=== PATIENT | male | born 1995 | race Caucasian/White ===

== ENCOUNTER 2016-10-23 19:20 | Emergency (ER) | payer OTHER ==
[~2016-10-23] VITALS: Ht 162.6 cm; Wt 64.0 kg
[2016-10-23 20:17] VITALS: Ht 162.6 cm; Wt 64.0 kg
[2016-10-23] MEDS ORDERED: AZITHROMYCIN 250 MG TAB PO ONE (21:00)
[2016-10-23] MEDS ORDERED: CEFTRIAXONE 250 MG INJ IM ONE (21:00)
[2016-10-23 21:08] LABS: URINE BLOOD (Dip) POC 1+ (NEGATIVE)
[2016-10-23] MEDS ORDERED: CIPR500T4 PO (21:45)
[2016-10-23 21:53] VITALS: BP 133/74; PULSE 85; RESP 18; TEMP 96.8
--- NOTE | 2016-10-24 00:39 | ERD ---
ER Documentation Chief Complaint Date/Time DATE: 10/24/16 TIME: 00:39 Chief Complaint Dysuria HPI This is a 21-year-old male that presents to the ER with urinary frequency and dysuria. Patient had unprotected sex a week ago. Patient states he is in a monogamous relationship however he got drunk and went to a [employer] and had sexual intercourse with another woman. Patient also complains of penile discharge. He denies any testicular pain. He denies any fevers or chills. ROS 12 point review of systems was done, all negative except per HPI. Medications Home Meds Active Scripts Ciprofloxacin Hcl* (Ciprofloxacin Hcl*) 500 Mg Tablet, 500 MG PO BID for 14 Days , TAB Prov:NUSRAT FIGUEROA 10/23/16 Allergies Allergies: Coded Allergies: No Known Allergy (Unverified , 10/23/16) PMhx/Soc Medical and Surgical Hx: pt denies Medical Hx, pt denies Surgical Hx Hx Alcohol Use: Yes Hx Substance Use: No Hx Tobacco Use: Yes Smoking Status: Current every day smoker Physical Exam Vitals Vital Signs Date Time Temp Pulse Resp B/P Pulse Ox O2 Delivery O2 Flow Rate FiO2 10/23/16 21:53 96.8 85 18 133/74 100 10/23/16 20:17 96.8 75 18 126/67 95 Physical Exam GENERAL: The patient is well developed and appropriate for usual state of health , in no apparent distress. HEENT: Atraumatic. CHEST: Clear to auscultation bilaterally. There are no rales, wheezes or rhonchi. HEART: Regular rate and rhythm. No murmurs, clicks, rubs or gallops. ABDOMEN: Soft, nontender and nondistended. Good bowel sounds. No rebound or guarding. No gross peritonitis. No gross organomegaly or masses. No Cuellar sign or McBurney point tenderness. : patient has pollock discharge from the penis. no testicular pain or swelling. NEURO: Alert and oriented. SKIN: The skin is warm and dry. Results 24 hrs Laboratory Tests Test 10/23/16 21:07 Bedside Urine pH (LAB) 5.5 Bedside Urine Protein (LAB) Trace Bedside Urine Glucose (UA) Negative Bedside Urine Ketones (LAB) Negative Bedside Urine Blood 1+ Bedside Urine Nitrite (LAB) Negative Bedside Urine Leukocyte Esterase (L 2+ Current Medications Medications (Trade) Dose Ordered Sig/Mildred Route PRN Reason Start Time Stop Time Status Last Admin Dose Admin Ceftriaxone Sodium (Rocephin) 250 mg ONCE ONCE IM 10/23/16 21:00 10/23/16 21:01 DC 10/23/16 21:02 Azithromycin (Zithromax) 1,000 mg ONCE ONCE PO 10/23/16 21:00 10/23/16 21:01 DC 10/23/16 21:02 Procedures/MDM This is a 21-year-old male that presents to the ER with urinary frequency and dysuria. Patient also has penile discharge. Patient likely has a sexually transmitted infection. He was treated here in the ER with Rocephin and azithromycin no complications. Patient is to follow-up with his primary care doctor within 1-2 days return to ER sooner if symptoms worsen. My medical decision-making should with the patient he understands and agrees with plan. Departure Diagnosis: Primary Impression: Exposure to STD Condition: Stable Patient Instructions: If You Think You Have an STD Additional Instructions: Call your primary care doctor TOMORROW for an appointment during the next 1-2 days.See the doctor sooner or return here if your condition worsens before your appointment time. NUSRAT FIGUEROA Oct 24, 2016 00:39
== END 2016-10-23 21:53 | disposition home or self-care (01) ==
LOC: FTE 19:20
DX: Z20.2 Contact with and (suspected) exposure to infections with a predominantly sexual mode of transmission (principal); F17.210 Nicotine dependence, cigarettes, uncomplicated
CPT/HCPCS: 81003; 87591; J0696; Z7610; 96372

== ENCOUNTER 2016-12-09 14:15 | Emergency (ER) | payer OTHER ==
[~2016-12-09] VITALS: Wt 71.0 kg
[~2016-12-09 14:15] MED LIST: CIPR500T4 PO
[2016-12-09 15:45] LABS: URINE BLOOD (Dip) POC 1+ (NEGATIVE)
[2016-12-09] MEDS ORDERED: CEFTRIAXONE 250 MG INJ IM ONE (16:00)
[2016-12-09] MEDS ORDERED: AZITHROMYCIN 250 MG TAB PO ONE (16:00)
[2016-12-09] MEDS ORDERED: DOXY100T20 PO (16:23)
--- NOTE | 2016-12-09 16:31 | ERD ---
ER Documentation Chief Complaint Date/Time DATE: 12/09/16 TIME: 16:25 Chief Complaint PENIS D/C REQUSTING STD HPI Is a 21-year-old male who presents the emergency department today complaining of penile discharge for the past week. Patient states he was seen here in October for similar symptoms and was treated for sexually transmitted infection. Patient states his symptoms resolved. States that his girlfriend was not treated. Denies any dysuria or testicular pain. Denies any fevers or chills. ROS All systems reviewed and are negative except as per history of present illness. Medications Home Meds Active Scripts Doxycycline Hyclate* (Doxycycline Hyclate*) 100 Mg Tablet.dr, 100 MG PO BID for 10 Days, TAB Prov:JANE MORRISON PA-C 12/09/16 Ciprofloxacin Hcl* (Ciprofloxacin Hcl*) 500 Mg Tablet, 500 MG PO BID for 14 Days , TAB Prov:NUSRAT FIGUEROA 10/23/16 Allergies Allergies: Coded Allergies: No Known Allergy (Unverified , 10/23/16) PMhx/Soc Medical and Surgical Hx: pt denies Medical Hx, pt denies Surgical Hx Hx Alcohol Use: Yes Hx Substance Use: No Hx Tobacco Use: Yes Smoking Status: Current every day smoker Physical Exam Vitals Vital Signs Date Time Temp Pulse Resp B/P Pulse Ox O2 Delivery O2 Flow Rate FiO2 12/09/16 16:38 89 16 100 Room Air 12/09/16 14:25 9.0 85 18 126/71 99 Physical Exam Const: No acute distress Head: Atraumatic Eyes: Normal Conjunctiva ENT: Normal External Ears, Nose and Mouth. Neck: Full range of motion..~ No meningismus. Resp: Clear to auscultation bilaterally Cardio: Regular rate and rhythm, no murmurs Abd: Soft, non tender, non distended. Normal bowel sounds : Testicular exam with testicles descended bilaterally. No erythema or warmth. Nontender to palpation. Uncircumcised penis. purulent yellow discharge from penis. Evidence of penile papules around glans penis. Ext: No cyanosis, or edema Neur: Awake and alert Psych: Normal Mood and Affect Results 24 hrs Laboratory Tests Test 12/09/16 15:47 Bedside Urine pH (LAB) 6.0 Bedside Urine Protein (LAB) Trace Bedside Urine Glucose (UA) Negative Bedside Urine Ketones (LAB) Negative Bedside Urine Blood 1+ Bedside Urine Nitrite (LAB) Negative Bedside Urine Leukocyte Esterase (L 2+ Current Medications Medications (Trade) Dose Ordered Sig/Mildred Route PRN Reason Start Time Stop Time Status Last Admin Dose Admin Ceftriaxone Sodium (Rocephin) 250 mg ONCE ONCE IM 12/09/16 16:00 12/09/16 16:01 DC 12/09/16 15:51 Azithromycin (Zithromax) 1,000 mg ONCE ONCE PO 12/09/16 16:00 12/09/16 16:01 DC 12/09/16 15:50 Procedures/MDM This a 21-year-old male who presents to the emergency department today for penile discharge for the past week. Patient has been treated in October 24, 2016 for sexually transmitted infections. At that time patient stated symptoms have resolved but returned approximately 1 week ago as his girlfriend was never treated. Given patient's symptoms I did obtain a UA as well as send the urine for gonorrhea and chlamydia. Patient was given azithromycin and ceftriaxone here in the emergency department. UA shows 2+ leukoesterase and 1+ hematuria Patient symptoms at this time most consistent with urinary tract infection likely secondary to gonorrhea and Chlamydia infection. Patient is afebrile and otherwise well-appearing. Low suspicion for pyelonephritis or nephrolithiasis. Patient has no testicular pain on physical exam. There is no erythema or warmth. Low suspicion for orchitis, epidermidis, testicular torsion. Patient was given a prescription for doxycycline. Patient was instructed to have all of his sexual partners tested and treated prior to intercourse. Patient was instructed to make sure symptoms resolved entirely. Patient also had evidence of umbilicated papules around the glans penis. They do not appear to be molluscum, genital warts or HSV however this certainly should be considered. I have explained this to the patient. Patient was given information for dermatology referral. At this time the patient is stable for discharge and outpatient management. Patient should follow up with their PCP in the next 1-2 days. They may return to the emergency department sooner for any persistent or worsening of symptoms. Patient understood and agreed with the plan. Discussed the patient with Dr. Aldridge and he is in agreement with the plan. Departure Diagnosis: Primary Impression: Encounter for laboratory test Additional Impression: UTI (urinary tract infection) Urinary tract infection type: site unspecified Hematuria presence: with hematuria Qualified Code: N39.0 - Urinary tract infection with hematuria, site unspecified Condition: Fair Patient Instructions: Understanding Urinary Tract Infections (UTIs), Understanding STDs Referrals: NOAV CORTES MD,LARISSA MEJIA,ZANA ROBIN,MORRO CERNA,PHAM MACEDO,SRIDHAR FRANCOIS,SRIDHAR Theodore [facility] YOU HAVE RECEIVED A MEDICAL SCREENING EXAM AND THE RESULTS INDICATE THAT YOU DO NOT HAVE A CONDITION THAT REQUIRES URGENT TREATMENT IN THE EMERGENCY DEPARTMENT. FURTHER EVALUATION AND TREATMENT OF YOUR CONDITION CAN WAIT UNTIL YOU ARE SEEN IN YOUR DOCTORS OFFICE WITHIN THE NEXT 1-2 DAYS. IT IS YOUR RESPONSIBILITY TO MAKE AN APPOINTMENT FOR FOLOW-UP CARE. IF YOU HAVE A PRIMARY DOCTOR --you should call your primary doctor and schedule an appointment IF YOU DO NOT HAVE A PRIMARY DOCTOR YOU CAN CALL OUR PHYSICIAN REFERRAL HOTLINE AT IF YOU CAN NOT AFFORD TO SEE A PHYSICIAN YOU CAN CHOSE FROM THE FOLLOWING [facility] CLINICS [facility] [address] [employer] [address] [facility] [address] [employer] [facility] [address] [facility] [address] [facility] [address] [facility]. [facility]. [address] Additional Instructions: Call your primary care doctor TOMORROW for an appointment during the next 1-2 days.See the doctor sooner or return here if your condition worsens before your appointment time. Take antibiotics as prescribed Do not have sexual intercourse until all symptoms have resolved and all partners have been tested and treated Make an appointment with clinical education specialist for bumps on penis JANE MORRISON PA-C December 09, 2016 16:30
[2016-12-09 16:38] VITALS: PULSE 89; RESP 16
== END 2016-12-09 16:39 | disposition home or self-care (01) ==
LOC: FTE 14:15
DX: Z00.01 Encounter for general adult medical examination with abnormal findings (principal); N39.0 Urinary tract infection, site not specified; F17.210 Nicotine dependence, cigarettes, uncomplicated
CPT/HCPCS: 81003; 87591; 96372; J0696; Z7502; Z7610

== ENCOUNTER 2017-05-28 15:31 | Emergency (ER) | payer OTHER ==
[~2017-05-28] VITALS: Ht 160 cm; Wt 60.0 kg
[~2017-05-28 15:31] MED LIST changes: +DOXY100T20 PO
[2017-05-28 15:37] VITALS: Ht 160 cm; Wt 60.0 kg
[2017-05-28] MEDS ORDERED: LORAZEPAM 2 MG INJ IM ONE (16:30)
--- NOTE | 2017-05-28 19:05 | ERD ---
ER Documentation Chief Complaint Chief Complaint BIB RA FOR EVAL OF ACCIDENTAL DRUG OD ON METH HPI This 21-year-old male presents for palpitations after smoking too much meth. He means you so much of the drug. He has been hyperventilating and feeling heart palpitations without actual pain. Also feels very jittery and nervous. Is feeling well before he uses the methamphetamines. ROS All systems reviewed and are negative except as per history of present illness. Medications Home Meds Discontinued Scripts Doxycycline Hyclate* (Doxycycline Hyclate*) 100 Mg Tablet.dr, 100 MG PO BID for 10 Days, TAB Prov:JANE MORRISON PA-C 12/09/16 Ciprofloxacin Hcl* (Ciprofloxacin Hcl*) 500 Mg Tablet, 500 MG PO BID for 14 Days , TAB Prov:NUSRAT FIGUEROA 10/23/16 Allergies Allergies: Coded Allergies: No Known Allergy (Unverified , 05/28/17) PMhx/Soc Medical and Surgical Hx: pt denies Medical Hx, pt denies Surgical Hx Hx Alcohol Use: Yes Hx Substance Use: Yes (meth marijuana ) Hx Tobacco Use: Yes Smoking Status: Current every day smoker Physical Exam Vitals Vital Signs Date Time Temp Pulse Resp B/P Pulse Ox O2 Delivery O2 Flow Rate FiO2 05/28/17 17:02 84 18 134/80 100 Room Air 05/28/17 15:52 114 28 170/57 100 Room Air 05/28/17 15:37 97.1 125 34 159/110 99 Physical Exam Const: [] Mild distress, appears in comfort Head: Atraumatic Eyes: Normal Conjunctiva, EOMI, PERRLA ENT: Normal External Ears, Nose and Mouth. Neck: Full range of motion..~ No meningismus. Resp: Clear to auscultation bilaterally, mild hyperventilation Cardio: Regular tachycardia, no murmurs Abd: Soft, non tender, non distended. Normal bowel sounds Skin: No petechiae or rashes Back: No midline or flank tenderness Ext: No cyanosis, or edema Neur: Awake and alert and oriented 3, no focal deficits Psych: Anxious Results 24 hrs Current Medications Medications (Trade) Dose Ordered Sig/Mildred Route PRN Reason Start Time Stop Time Status Last Admin Dose Admin Lorazepam (Ativan) 1 mg ONCE ONCE IM 05/28/17 16:30 05/28/17 16:31 DC 05/28/17 17:00 Procedures/MDM Amphetamine abuse with normal symptoms of that drug including palpitations and anxiety. Patient was given a milligram of Ativan. After this he felt much better and his vital signs stabilized. No signs of ischemia on his EKG. Feeling much better and is being discharged in stable condition. Was counseled at the bedside for greater than 3 minutes about the dangers of methamphetamine use. EKG interpretation: Normal sinus rhythm rate of 97, single PVC, normal axis, no ST or T-wave changes concerning for acute ischemia. shanker out interpretation: Sinus tachycardia followed by normal sinus rhythm without arrhythmias. Departure Diagnosis: Primary Impression: Palpitations Additional Impression: Methamphetamine use Condition: Stable Patient Instructions: Understanding Methamphetamine Abuse and Addiction Referrals: [facility] YOU HAVE RECEIVED A MEDICAL SCREENING EXAM AND THE RESULTS INDICATE THAT YOU DO NOT HAVE A CONDITION THAT REQUIRES URGENT TREATMENT IN THE EMERGENCY DEPARTMENT. FURTHER EVALUATION AND TREATMENT OF YOUR CONDITION CAN WAIT UNTIL YOU ARE SEEN IN YOUR DOCTORS OFFICE WITHIN THE NEXT 1-2 DAYS. IT IS YOUR RESPONSIBILITY TO MAKE AN APPOINTMENT FOR FOLOW-UP CARE. IF YOU HAVE A PRIMARY DOCTOR --you should call your primary doctor and schedule an appointment IF YOU DO NOT HAVE A PRIMARY DOCTOR YOU CAN CALL OUR PHYSICIAN REFERRAL HOTLINE AT IF YOU CAN NOT AFFORD TO SEE A PHYSICIAN YOU CAN CHOSE FROM THE FOLLOWING [facility] [address] [facility]. [facility] [address] [facility] [facility] [address] [facility] [address] [facility]. [facility] [address] [facility]. [facility]. [address] Additional Instructions: Call your primary care doctor TOMORROW for an appointment during the next 1-2 days.See the doctor sooner or return here if your condition worsens before your appointment time. PRAKASH VILLANUEVA DO May 28, 2017 19:05
[2017-05-28 19:20] VITALS: BP 128/78; PULSE 80; RESP 17
== END 2017-05-28 19:21 | disposition home or self-care (01) ==
LOC: E/R 15:31
DX: R00.2 Palpitations (principal); F15.20 Other stimulant dependence, uncomplicated; F17.210 Nicotine dependence, cigarettes, uncomplicated
CPT/HCPCS: 93005; 96372; J2060; Z7502

== ENCOUNTER 2017-05-30 00:33 | Emergency (ER) | payer OTHER ==
[~2017-05-30] VITALS: Ht 177.8 cm; Wt 80.0 kg
[2017-05-30 00:36] VITALS: Ht 177.8 cm; Wt 80.0 kg
--- NOTE | 2017-05-30 01:37 | ERD ---
ER Documentation Chief Complaint Chief Complaint RUQ abd pain 2 days ago, sp drug use - meth 2 days ago, panic attack HPI The patient is a 21-year-old male, presenting to the ER because of right upper quadrant abdominal pain for 2 days, associated with vomiting today. He was seen in the ER 2 days ago for acute amphetamine abuse treated with Ativan then released. He is stated that the last time he did amphetamine was 2 days ago, denies fever, chills, neck pain, chest pain, dysuria, diarrhea, constipation. He smokes, denies drinking X Past medical history: Panic disorder, Past surgical history: None ROS All systems reviewed and are negative except as per history of present illness. Medications Home Meds Discontinued Scripts Doxycycline Hyclate* (Doxycycline Hyclate*) 100 Mg Tablet.dr, 100 MG PO BID for 10 Days, TAB Prov:JANE MORRISON PA-C 12/09/16 Ciprofloxacin Hcl* (Ciprofloxacin Hcl*) 500 Mg Tablet, 500 MG PO BID for 14 Days , TAB Prov:NUSRAT FIGUEROA 10/23/16 Allergies Allergies: Coded Allergies: No Known Allergy (Unverified , 05/28/17) PMhx/Soc Hx Alcohol Use: Yes Hx Substance Use: Yes (meth marijuana ) Hx Tobacco Use: Yes Physical Exam Vitals Vital Signs Date Time Temp Pulse Resp B/P Pulse Ox O2 Delivery O2 Flow Rate FiO2 05/30/17 02:38 60 19 122/66 100 Room Air 05/30/17 01:54 66 24 139/109 100 Room Air 05/30/17 00:36 97.8 105 20 154/80 96 Physical Exam Const: Very anxious, and in no distress Head: Atraumatic. Eyes: Normal Conjunctiva. ENT: Normal External Ears, Nose and Mouth. Neck: Full range of motion. No meningismus. Resp: Clear to auscultation bilaterally. Cardio: Regular rate and rhythm. Abd: Soft, non distended, normal bowel sounds, Vague right upper quadrant tenderness, no rigidity, rebound, CVA tenderness Skin: No petechiae or rashes. Back: No midline or flank tenderness. Ext: No cyanosis, or edema. Neur: Awake and alert. No focal deficit Psych: Normal Mood and Affect. Result Diagram: 05/30/1720405/30/17204 Results 24 hrs Laboratory Tests Test 05/30/17 02:05 05/30/17 02:11 White Blood Count 13.510^3/ul Red Blood Count 5.2710^6/ul Hemoglobin 15.5g/dl Hematocrit 44.5% Mean Corpuscular Volume 84.4fl Mean Corpuscular Hemoglobin 29.4pg Mean Corpuscular Hemoglobin Concent 34.8g/dl Red Cell Distribution Width 13.1% Platelet Count 83830^3/UL Mean Platelet Volume 10.1fl Neutrophils % 63.7% Lymphocytes % 24.3% Monocytes % 7.8% Eosinophils % 3.5% Basophils % 0.4% Nucleated Red Blood Cells % 0.0/100WBC Neutrophils # 8.610^3/ul Lymphocytes # 3.310^3/ul Monocytes # 1.110^3/ul Eosinophils # 0.510^3/ul Basophils # 0.110^3/ul Nucleated Red Blood Cells # 0.010^3/ul Sodium Level 143mmol/L Potassium Level 3.4mmol/L Chloride Level 111mmol/L Carbon Dioxide Level 14mmol/L Anion Gap 21 Blood Urea Nitrogen 21mg/dl Creatinine 0.94mg/dl Glucose Level 120mg/dl Calcium Level 9.7mg/dl Total Bilirubin 0.6mg/dl Direct Bilirubin 0.00mg/dl Indirect Bilirubin 0.6mg/dl Aspartate Amino Transf (AST/SGOT) 37IU/L Alanine Aminotransferase (ALT/SGPT) 38IU/L Alkaline Phosphatase 163IU/L Total Protein 8.5g/dl Albumin 5.1g/dl Globulin 3.40g/dl Albumin/Globulin Ratio 1.50 Lipase 57U/L Urine Opiates Screen Negative Urine Barbiturates Negative Urine Amphetamines Screen Positive Urine Benzodiazepines Screen Negative Urine Cocaine Screen Negative Urine Cannabinoids Positive Ethyl Alcohol Level < 10.0mg/dl Bedside Urine pH (LAB) 6.5 Bedside Urine Protein (LAB) 1+ Bedside Urine Glucose (UA) Negative Bedside Urine Ketones (LAB) 3+ Bedside Urine Blood Negative Bedside Urine Nitrite (LAB) Negative Bedside Urine Leukocyte Esterase (L Negative Current Medications Medications (Trade) Dose Ordered Sig/Mildred Route PRN Reason Start Time Stop Time Status Last Admin Dose Admin Lorazepam 1 mg 1 mg ONCE ONCE IV 05/30/17 02:00 05/30/17 02:01 DC 05/30/17 02:21 Sodium Chloride (NS) 1,000 ml @ 1,000 mls/hr Q1H ONCE IV 05/30/17 02:00 05/30/17 02:59 DC 05/30/17 02:21 Potassium Chloride (Klor-Con 20) 20 meq ONCE STAT PO 05/30/17 03:32 05/30/17 03:33 DC Procedures/MDM [place] [id number] Radiology Main Line: [phone] DIAGNOSTIC IMAGING REPORT Patient: EDNA PITTMAN : 1995 Age: 21 Sex: M MR #: [id number] DOS: 05/30/17 0153 Ordering MD: MORRO NESS MD Location: E/R Room/Bed: PROCEDURE: ULTRASOUND LIMITED ABDOMEN CLINICAL INDICATION: 21-year-old male with abdominal pain. TECHNIQUE: Multiple sonographic of the right upper quadrant of the abdomen were obtained. The images were reviewed on a PACS workstation. COMPARISON: None. FINDINGS: The pancreas is partially visualized and is otherwise without abnormal echogenicity. The liver displays normal echogenicity. The liver measures 13.9 cm in length. No evidence of intrahepatic biliary ductal dilatation is seen. The portal and hepatic veins are unremarkable. The gallbladder demonstrates no wall thickening, sludge, nor stones. No pericholecystic fluid is seen. The common bile duct measures 3.2 mm and is not dilated. The right kidney displays normal echogenicity. The right kidney measures 9.9 cm in maximal length. No caliectasis or hydronephrosis is seen. No free fluid is seen. IMPRESSION: Unremarkable right upper quadrant abdominal ultrasound. .Fam Bradshaw MD, Date Time Electronically viewed and signed by .Fam Bradshaw MD, on 05/30/2017 02:35 .M/ CC: MORRO NESS MD [place] [id number] Radiology Main Line: [phone] DIAGNOSTIC IMAGING REPORT Patient: EDNA PITTMAN : 1995 Age: 21 Sex: M MR #: [id number] DOS: 05/30/17 0153 Ordering MD: MORRO NESS MD Location: E/R Room/Bed: PROCEDURE: XR Chest. CLINICAL INDICATION: Abdominal pain. TECHNIQUE: Single frontal view of the chest. COMPARISON: None. FINDINGS: Heart size is likely upper limits of normal. The lungs are clear. No signs of pleural fluid or pneumothorax are seen. The osseous structures and soft tissues are unremarkable. IMPRESSION: No evidence for active cardiopulmonary disease. RPTAT: UU Physician Aubree Date Time Electronically viewed and signed by Physician Aubree on 05/30/2017 02:16 RS/ CC: MORRO NESS MD MEDICAL MAKING DECISION: The patient is a 31-year-old male, presenting to the ER because of acute anxiety attack, acute amphetamine abuse, acute hypokalemia, acute abdominal pain of unclear etiology, most likely due to hyperventilation and drug abuse. He was treated with Ativan 1 mg IV for acute anxiety, 1 L normal saline for acute dehydration and potassium chloride 20 mEq p.o. for acute hypokalemia with good response The differential diagnoses considered include but are not limited to cholelithiasis, cholecystitis, cystitis, pancreatitis, hepatitis, gastritis, peptic ulcer disease, gastric ulcer, appendicitis, diverticulitis, cholangitis, choledocholithiasis, partial small bowel obstruction. Departure Diagnosis: Primary Impression: Abdominal pain Additional Impressions: Amphetamine abuse Hypokalemia Condition: Good Comments The patient's blood pressure was elevated (>120/80) but appears stable without evidence of hypertension emergency or urgency. The patient was counseled about the risks of hypertension and urged to pursue outpatient monitoring and therapy within a week with their primary care physician. I discussed the findings with the patient. I advised the patient to follow-up with the primary physician in about 1-2 days, sooner if needed and return if any concern. Disclaimer: Inadvertent spelling and grammatical errors are likely due to EHR/ dictation software use and do not reflect on the overall quality of patient care. Also, please note that the electronic time recorded on this note does not necessarily reflect the actual time of the patient encounter. MORRO NESS MD May 30, 2017 01:37
[2017-05-30] MEDS ORDERED: LORAZEPAM 2 MG INJ IV ONE (02:00)
[2017-05-30] MEDS ORDERED: SOD CHLORIDE 0.9% 1,000 ML IV ONE (02:00)
[2017-05-30 02:14] LABS: URINE BLOOD (Dip) POC Negative (NEGATIVE)
--- NOTE | 2017-05-30 02:16 | RADRPT ---
PROCEDURE: XR Chest. CLINICAL INDICATION: Abdominal pain. TECHNIQUE: Single frontal view of the chest. COMPARISON: None. FINDINGS: Heart size is likely upper limits of normal. The lungs are clear. No signs of pleural fluid or pneum othorax are seen. The osseous structures and soft tissues are unremarkable. IMPRESSION: No evidence for active cardiopulmonary disease. RPTAT: UU Physician Aubree Date Time Electronically viewed and signed by Physician Aubree on 05/30/2017 02:16 RS/
--- NOTE | 2017-05-30 02:35 | RADRPT ---
PROCEDURE: ULTRASOUND LIMITED ABDOMEN CLINICAL INDICATION: 21-year-old male with abdominal pain. TECHNIQUE: Multiple sonographic of the right upper quadrant of the abdomen were obtained. The imag es were reviewed on a PACS workstation. COMPARISON: None. FINDINGS: The pancreas is partially visualized and is otherwise without abnormal echogenicity. The liver displays normal echogenicity. The liver measures 13.9 cm in length. No evidence of intrah epatic biliary ductal dilatation is seen. The portal and hepatic veins are unremarkable. The gallbladder demonstrates no wall thickening, sludge, nor stones. No pericholecystic fluid is see n. The common bile duct measures 3.2 mm and is not dilated. The right kidney displays normal echogenicity. The right kidney measures 9.9 cm in maximal length. N o caliectasis or hydronephrosis is seen. No free fluid is seen. IMPRESSION: Unremarkable right upper quadrant abdominal ultrasound. .Fam Bradshaw MD, MD Date Time Electronically viewed and signed by .Fam Bradshaw MD, on 05/30/2017 02:35 .M/
[2017-05-30 02:36] LABS: BASOPHIL # 0.1 10^3/ul (0.0-0.1); BASOPHILS % 0.4 % (0.0-2.0); EOSINOPHILS # 0.5 10^3/ul (0.0-0.5); EOSINOPHILS % 3.5 % (0.0-7.0); HEMATOCRIT 44.5 % (42.0-52.0); HEMOGLOBIN 15.5 g/dl (14.0-18.0); LYMPHOCYTES # 3.3 10^3/ul (0.8-2.9); LYMPHOCYTES % 24.3 % (15.0-51.0); MEAN CORPUSCULAR HEMOGLOBIN 29.4 pg (29.0-33.0); MEAN CORPUSCULAR HGB CONC 34.8 g/dl (32.0-37.0); MEAN CORPUSCULAR VOLUME 84.4 fl (82.0-101.0); MEAN PLATELET VOLUME 10.1 fl (7.4-10.4); MONOCYTE # 1.1 10^3/ul (0.3-0.9); MONOCYTES % 7.8 % (0.0-11.0); NEUTROPHIL # 8.6 10^3/ul (1.6-7.5); NEUTROPHILS % 63.7 % (39.0-77.0); PLATELET COUNT 272 10^3/UL (140-415); RED BLOOD COUNT 5.27 10^6/ul (4.70-6.10); RED CELL DISTRIBUTION WIDTH 13.1 % (11.5-14.5); WHITE BLOOD COUNT 13.5 10^3/ul (4.8-10.8)
[2017-05-30 03:04] LABS: ALANINE AMINOTRANSFERASE 38 IU/L (13-69); ALBUMIN 5.1 g/dl (3.3-4.9); ALKALINE PHOSPHATASE 163 IU/L (42-121); ANION GAP 21 (8-16); ASPARTATE AMINO TRANSFERASE 37 IU/L (15-46); BILIRUBIN,INDIRECT 0.6 mg/dl (0-1.1); BILIRUBIN,TOTAL 0.6 mg/dl (0.2-1.3); BLOOD UREA NITROGEN 21 mg/dl (7-20); CALCIUM 9.7 mg/dl (8.4-10.2); CARBON DIOXIDE 14 mmol/L (21-31); CHLORIDE 111 mmol/L (97-110); CREATININE 0.94 mg/dl (0.61-1.24); GLUCOSE 120 mg/dl (70-220); POTASSIUM 3.4 mmol/L (3.5-5.1); SODIUM 143 mmol/L (135-144); TOTAL PROTEIN 8.5 g/dl (6.1-8.1)
[2017-05-30 03:05] LABS: ETHANOL < 10.0 mg/dl
[2017-05-30 03:16] LABS: BARBITURATES Negative (NEGATIVE); BENZODIAZEPINES Negative (NEGATIVE); CANNABINOIDS Positive (NEGATIVE); COCAINE Negative (NEGATIVE); OPIATES Negative (NEGATIVE)
[2017-05-30] MEDS ORDERED: POTASSIUM CHLORIDE (SR) 20 MEQ TAB PO STA (03:32)
[2017-05-30 03:49] VITALS: BP 111/51; PULSE 82; RESP 15
== END 2017-05-30 03:54 | disposition home or self-care (01) ==
LOC: E/R 00:33
DX: R10.11 Right upper quadrant pain (principal); F15.10 Other stimulant abuse, uncomplicated; E87.6 Hypokalemia; Z87.891 Personal history of nicotine dependence
CPT/HCPCS: 36415; 71010; 76705; 80053; 80306; 80307; 81003; 83690; 85025; 96374; J2060; J7030; Z7502; Z7610

== ENCOUNTER 2018-01-15 06:55 | Emergency (ER) | END 2018-01-15 09:40 | disposition home or self-care (01) ==

== ENCOUNTER 2018-05-03 03:13 | Emergency (ER) | END 2018-05-03 05:05 | disposition home or self-care (01) ==

== ENCOUNTER 2018-12-14 07:48 | Emergency (ER) | payer OTHER ==
[~2018-12-14] VITALS: Ht 162.6 cm; Wt 67.4 kg
[~2018-12-14 07:48] MED LIST changes: +ALBU8.5H8 INH; +BENZ-6 PO; +CETI10CA PO; -CIPR500T4 PO; -DOXY100T20 PO; +PRED20TA PO
[2018-12-14 07:52] VITALS: BP 122/58; PULSE 67; RESP 18; Ht 162.6 cm; Wt 67.4 kg
[2018-12-14] MEDS ORDERED: ONDANSETRON (ODT) 4 MG TAB ODT STA (08:38)
[2018-12-14] MEDS ORDERED: ACETAMINOPHEN 500 MG TAB PO STA (08:38)
[2018-12-14] MEDS ORDERED: ONDA4TAB14 PO (08:58)
--- NOTE | 2018-12-14 09:24 | ERD ---
ER Documentation Chief Complaint Chief Complaint nausea this morning, patient was at a libertarian friday HPI 23-year-old male presenting with complaints of nausea. Patient states that 2 nights ago he was at a libertarian and was smoking marijuana. He also had a few drinks of alcohol and states that he blacked out. He did not wake up until 24 hours after the incident does not remember anything. Patient denies any vomiting or head injury however complains of nausea. He is concerned and wants to have a drug test run today as he feels that he was under the influence it caused him to blackout. He did not feel that he drink excessive amounts of alcohol which would result in him blacking out. Patient feels confused. He denies medical problems. NKDA. Surgical history denies. Social history smokes marijuana denies IV drug use. ROS All systems reviewed and are negative except as per history of present illness. Medications Home Meds Active Scripts Ondansetron (Ondansetron Odt) 4 Mg Tab.rapdis, 4 MG PO Q6H PRN for NAUSEA AND/OR VOMITING, #10 TAB Prov:GRANT MEJIA PA-C 12/14/18 Prednisone* (Prednisone*) 20 Mg Tab, 40 MG PO DAILY for 4 Days, TAB Prov:GRANT MEJIA PA-C 05/03/18 Albuterol Sulfate* (Proair HFA*) 8.5 Gm Hfa.aer.ad, 2 PUFF INH Q4, #1 INHALER Prov:GRANT MEJIA PA-C 05/03/18 Cetirizine Hcl* (Zyrtec*) 10 Mg Capsule, 10 MG PO DAILY, #30 TAB.CHEW Prov:AUBREE RODRIGUEZ PA-C 01/15/18 Benzonatate* (Tessalon Perle*) 100 Mg Capsule, 100 MG PO Q8H PRN for COUGH, #30 CAP Prov:AUBREE RODRIGUEZ PA-C 01/15/18 Albuterol Sulfate* (Proair HFA*) 8.5 Gm Hfa.aer.ad, 2 PUFF INH Q4H PRN for WHEEZING AND SOB, #1 INHALER Prov:AUBREE RODRIGUEZC 01/15/18 Allergies Allergies: Coded Allergies: No Known Allergy (Unverified , 05/28/17) PMhx/Soc Medical and Surgical Hx: pt denies Medical Hx, pt denies Surgical Hx Hx Alcohol Use: Yes Hx Substance Use: Yes (marijuana) Hx Tobacco Use: No Smoking Status: Never smoker FmHx Family History: No diabetes, No coronary disease, No other Physical Exam Vitals Vital Signs Date Temp Pulse Resp B/P (MAP) Pulse Ox O2 O2 Flow FiO2 Time Delivery Rate 12/14/18 97.8 67 18 122/58 100 07:52 (79) Physical Exam GENERAL: The patient is well-appearing, well-nourished, in no acute distress HEENT: Atraumatic. Conjunctivae are pink. Pupils equal, round, and reactive to light. There is no scleral icterus. Tympanic membranes clear bilaterally. Oropharynx clear. CHEST: Clear to auscultation bilaterally. There are no rales, wheezes or rhonchi. HEART: Regular rate and rhythm. No murmurs, clicks, rubs or gallops. No S3 or S4. ABDOMEN:Soft, nontender and nondistended. Good bowel sounds. No rebound or guarding. No gross peritonitis. No gross organomegaly or masses. No Cuellar sign or McBurney point tenderness NEUROLOGIC: Alert and oriented. Cranial nerves II through XII intact. Motor strength in all 4 extremities with 5 out of 5 strength. Sensation grossly intact. Normal speech and gait. Results 24 hrs Laboratory Tests Test 12/14/18 08:45 Urine Opiates Screen Negative Urine Barbiturates Negative Urine Amphetamines Screen Negative Urine Benzodiazepines Screen Positive Urine Cocaine Screen Negative Urine Cannabinoids Positive Current Medications Medications Dose Sig/Mildred Start Time Status Last (Trade) Ordered Route PRN Stop Time Admin Dose Reason Admin Ondansetron 4 mg ONCE STAT 12/14/18 DC 12/14/18 HCl (Zofran ODT 08:38 08:47 Odt) 12/14/18 08:40 1,000 mg ONCE STAT 12/14/18 DC 12/14/18 Acetaminophen PO 08:38 08:47 (Tylenol 12/14/18 08:40 Tab) Procedures/MDM ER course: Urine drug screen was run which showed positive cannabis and benzos. MDM: 23 yr old male complaining of nausea after drinking and smoking marijuana. Patient was found to have Benzos in his system that may have caused him to black out. I have low suspicion for neuro deficit. I have low suspicion for infectious process. Patient is discharged with antinause medicine but I do not feel patient requires further blood work or imagining. All questions answered at discharge Departure Diagnosis: Primary Impression: Mild nausea Condition: Stable Patient Instructions: Nausea Referrals: [facility] YOU HAVE RECEIVED A MEDICAL SCREENING EXAM AND THE RESULTS INDICATE THAT YOU DO NOT HAVE A CONDITION THAT REQUIRES URGENT TREATMENT IN THE EMERGENCY DEPARTMENT. FURTHER EVALUATION AND TREATMENT OF YOUR CONDITION CAN WAIT UNTIL YOU ARE SEEN IN YOUR DOCTORS OFFICE WITHIN THE NEXT 1-2 DAYS. IT IS YOUR RESPONSIBILITY TO MAKE AN APPOINTMENT FOR FOLOW-UP CARE. IF YOU HAVE A PRIMARY DOCTOR --you should call your primary doctor and schedule an appointment IF YOU DO NOT HAVE A PRIMARY DOCTOR YOU CAN CALL OUR PHYSICIAN REFERRAL HOTLINE AT IF YOU CAN NOT AFFORD TO SEE A PHYSICIAN YOU CAN CHOSE FROM THE FOLLOWING [facility] [address] [facility] [address] [facility] [facility] [address] [facility] [address] [facility] [address] [facility] [address] [facility] [facility]. [address] Additional Instructions: FOLLOW UP WITH YOUR PRIMARY CARE PHYSICIAN TOMORROW.Return to this facility if you are not improving as expected. GRANT MEJIA PA-C December 14, 2018 09:24
== END 2018-12-14 09:09 | disposition home or self-care (01) ==
LOC: FTE 07:48
DX: R11.0 Nausea (principal)
CPT/HCPCS: 80307; Z7502; Z7610; 99283

== ENCOUNTER 2019-01-19 07:58 | Emergency (ER) | payer SELFPAY ==
[~2019-01-19] VITALS: Ht 162.6 cm; Wt 66.0 kg
[~2019-01-19 07:58] MED LIST changes: +ONDA4TAB14 PO
[2019-01-19 08:04] VITALS: BP 134/62; PULSE 68; RESP 19; Ht 162.6 cm; Wt 66.0 kg
[2019-01-19] MEDS ORDERED: HYDR26CR PR (08:27)
[2019-01-19] MEDS ORDERED: LOPE2CAP PO (08:27)
--- NOTE | 2019-01-19 09:19 | ERD ---
ER Documentation Chief Complaint Chief Complaint rectal pain with diarrhea x this am HPI 23-year-old male presenting with rectal pain with diarrhea since this morning. He states over the last 4 days he is having excessive diarrhea but no vomiting. He denies any blood in his stool. He feels that his rectum has become irritated and swollen secondary to the recent bouts of diarrhea. He has not used medications. He denies any abdominal pain. Denies medical problems. NKDA. Surgical history denies. Social history smokes marijuana and cigarettes daily. ROS All systems reviewed and are negative except as per history of present illness. Medications Home Meds Active Scripts Loperamide Hcl* (Imodium*) 2 Mg Capsule, 2 MG PO .AFTER EA LOOSE BM PRN for DIARRHEA, #10 TAB Prov:GRANT MEJIA PA-C 01/19/19 Hydrocortisone* Rectal (Preparation H* Cream) 1% - 26 Gm Cream.gm., [address] BID, #1 TUB Prov:GRANT MEJIA PA-C 01/19/19 Ondansetron (Ondansetron Odt) 4 Mg Tab.rapdis, 4 MG PO Q6H PRN for NAUSEA AND/OR VOMITING, #10 TAB Prov:GRANT MEJIA PA-C 12/14/18 Prednisone* (Prednisone*) 20 Mg Tab, 40 MG PO DAILY for 4 Days, TAB Prov:GRANT MEJIA PA-C 05/03/18 Albuterol Sulfate* (Proair HFA*) 8.5 Gm Hfa.aer.ad, 2 PUFF INH Q4, #1 INHALER Prov:GRANT MEJIA PA-C 05/03/18 Cetirizine Hcl* (Zyrtec*) 10 Mg Capsule, 10 MG PO DAILY, #30 TAB.CHEW Prov:AUBREE RODRIGUEZ PA-C 01/15/18 Benzonatate* (Tessalon Perle*) 100 Mg Capsule, 100 MG PO Q8H PRN for COUGH, #30 CAP Prov:AUBREE RODRIGUEZ PA-C 01/15/18 Albuterol Sulfate* (Proair HFA*) 8.5 Gm Hfa.aer.ad, 2 PUFF INH Q4H PRN for WHEEZING AND SOB, #1 INHALER Prov:AUBREE RODRIGUEZ Noe WEEMS 01/15/18 Allergies Allergies: Coded Allergies: No Known Allergy (Unverified , 05/28/17) PMhx/Soc Medical and Surgical Hx: pt denies Medical Hx, pt denies Surgical Hx Hx Alcohol Use: Yes Hx Substance Use: Yes (marijuana) Hx Tobacco Use: No Smoking Status: Never smoker FmHx Family History: No diabetes, No coronary disease, No other Physical Exam Vitals Vital Signs Date Temp Pulse Resp B/P (MAP) Pulse Ox O2 O2 Flow FiO2 Time Delivery Rate 01/19/19 97.4 68 19 134/62 99 08:04 (86) Physical Exam GENERAL: The patient is well-appearing, well-nourished, in no acute distress CHEST: Clear to auscultation bilaterally. There are no rales, wheezes or rhonchi. HEART: Regular rate and rhythm. No murmurs, clicks, rubs or gallops. ABDOMEN:Soft, nontender and nondistended. Good bowel sounds. No rebound or guarding. No gross peritonitis. No gross organomegaly or masses. No Cuellar sign or McBurney point tenderness. BACK: No midline or flank tenderness. RECTUM: Mild erythema noted around the anus with no hemorrhoids. No fistulas or excoriations. No pain with digital rectal exam. Procedures/MDM MDM: 23-year-old male presenting with pain around the anus. Patient likely has irritation secondary to his recent very low suspicion for perirectal or perianal abscess. Patient is discharged with strict ER precautions and told to follow-up with primary care within 1 to 2 days for close evaluation. Patient will be discharged with supportive medications. I do not feel blood work or imaging is indicated. All questions answered at discharge Departure Diagnosis: Primary Impression: Diarrhea Condition: Stable Patient Instructions: Treating Diarrhea Referrals: [facility] YOU HAVE RECEIVED A MEDICAL SCREENING EXAM AND THE RESULTS INDICATE THAT YOU DO NOT HAVE A CONDITION THAT REQUIRES URGENT TREATMENT IN THE EMERGENCY DEPARTMENT. FURTHER EVALUATION AND TREATMENT OF YOUR CONDITION CAN WAIT UNTIL YOU ARE SEEN IN YOUR DOCTORS OFFICE WITHIN THE NEXT 1-2 DAYS. IT IS YOUR RESPONSIBILITY TO MAKE AN APPOINTMENT FOR FOLOW-UP CARE. IF YOU HAVE A PRIMARY DOCTOR --you should call your primary doctor and schedule an appointment IF YOU DO NOT HAVE A PRIMARY DOCTOR YOU CAN CALL OUR PHYSICIAN REFERRAL HOTLINE AT IF YOU CAN NOT AFFORD TO SEE A PHYSICIAN YOU CAN CHOSE FROM THE FOLLOWING [facility] [address] [facility] [address] [facility] [address] [facility] [address] [facility] [address] [facility]. [facility]. [address] Additional Instructions: FOLLOW UP WITH YOUR PRIMARY CARE PHYSICIAN TOMORROW.Return to this facility if you are not improving as expected. GRANT MEJIA PA-C Jan 19, 2019 09:19
== END 2019-01-19 08:49 | disposition home or self-care (01) ==
LOC: FTE 07:58
DX: R19.7 Diarrhea, unspecified (principal); F17.210 Nicotine dependence, cigarettes, uncomplicated
CPT/HCPCS: 99284